=== PATIENT | male | born 1955 | race Caucasian/White ===

== ENCOUNTER → 2017-12-30 | Outpatient (CLI) | payer OTHER ==
[~2017-12-30] MED LIST: ATOR40TA69 PO; BUDE10.2 INH; GLUC1TAB13 PO; HYDR12.561 PO; LISI-353 PO; LISI20TA29 PO; LOSA-57 PO; METH4TAB66 PO; MULT-27 PO; NAPR220C12 PO; OMEG-24 PO; PNEI IM
--- NOTE | 2017-12-30 10:34 | RADIOLOGY IMAGING REPORT ---
FACILITY: [facility] - [place] PATIENT NAME: Trip Zamora : 1955 MR: [id number] V: [id number] EXAM DATE: ORDERING PHYSICIAN: ERNIE FARIAS TECHNOLOGIST: Location: [facility] - [place] Patient: Trip Zamora : 1955 Visit/Account:[id number] Date of Sevice: 12/30/2017 Exam type: SOFT TISSUE HEAD NECK History: neck mass Comparison: None. Findings: Patient has a palpable soft tissue protrusion extending from the midline of the lower neck. There is a well-circumscribed ovoid hypoechoic soft tissue process in the location of patient's palpable abno rmality measuring approximately 4.2 x 2.2 x 4.7 cm just beneath the skin. This is of uncertain etiol ogy. This could possibly represent a typical appearance of a lipoma although other soft tissue kalyan s included in the differential diagnosis. Also incidentally noted are multiple thyroid nodules which are not completely evaluated IMPRESSION: 1. 4.7 x 2.2 x 4.2 cm soft tissue process in the anterior inferior lower neck of uncertain etiology. Further evaluation with CT of the neck with contrast recommended for further evaluation Incidentally noted are bilateral thyroid nodules for which formal thyroid ultrasound would be helpful Report Dictated By: Jia Salinas MD at 12/30/2017 10:29 AM Report E-Signed By: Jia Salinas MD at 12/30/2017 10:31 AM WSN:[email or web address]
== END ==
LOC: US 07:04
PROVIDERS: ATTEND Nurse Practitioner Family
DX: E04.2 Nontoxic multinodular goiter (principal); R22.1 Localized swelling, mass and lump, neck
CPT/HCPCS: 76536

== ENCOUNTER → 2018-01-05 | Outpatient (CLI) | payer OTHER ==
[~2018-01-05] MED LIST changes: +IOPAMIDOL 76% 75 ML INFUS BTL 75 ML ONE
--- NOTE | 2018-01-05 11:57 | RADIOLOGY IMAGING REPORT ---
FACILITY: [facility] PATIENT NAME: Trip Zamora : 1955 MR: [id number] V: [id number] EXAM DATE: ORDERING PHYSICIAN: ERNIE FARISA TECHNOLOGIST: Location: [facility] [place] Patient: Trip Zamora : 1955 Visit/Account:[id number] Date of Sevice: 01/05/2018 THYROID HISTORY: thyroid nodule COMPARISON: Ultrasound soft tissue neck December 30, 2017 FINDINGS: SIZE: Right lobe: 5.3 x 1.9 x 1.5 cm Left lobe: 4.9 x 1.9 x 1.6 cm Isthmus: 3 mm PARENCHYMA: Homogeneous. NODULES: Right lobe: * In the medial aspect of the mid right lobe there is a 1.5 x 1.1 x 1.5 cm well-circumscribed ovoid hypoechoic nodule. In the inferior aspect right lobe there is a well-circumscribed hypoechoic nodule measuring 9 mm in diameter. Left lobe: * In the mid left lobe there is a 9 mm cyst. In the inferior left lobe there is a 1 cm well-circums cribed hypoechoic nodule Isthmus: * None discrete. VASCULARITY: Within normal limits. ADDITIONAL FINDINGS: None. IMPRESSION: There is a 1.5 cm well-circumscribed hypoechoic nodule in the medial aspect of the mid right lobe for which ultrasound-guided fine-needle aspiration is recommended REFERENCE: 2015 [place] [employer] Management Guidelines for Adult Patients with Thyroid Nodules and D ifferentiated Thyroid Cancer: The [place] [employer] Guidelines Task Force on Thyroid Nodul es and Differentiated Thyroid Cancer. SONOGRAPHIC PATTERNS: * Benign: Purely cystic nodules (no solid component); estimated risk of malignancy <1 percent; no bi opsy recommended. * Very Low Suspicion: Spongiform or partially cystic nodules without any of the sonographic features described in low, intermediate, or high suspicion patterns; estimated risk of malignancy <3 percent; consider FNA at > 2 cm (Observation without FNA is also a reasonable option). * Low Suspicion: Isoechoic or hyperechoic solid nodule, or partially cystic nodule with eccentric so lid areas, without microcalcification, irregular margin or ETE (extra-thyroidal extension), or taller than wide shape; estimated risk of malignancy 5-10 percent; recommend FNA at >1.5 cm. * Intermediate Suspicion: Hypoechoic solid nodule with smooth margins without microcalcifications, E TE (extra-thyroidal extension), or taller than wide shape; estimated risk of malignancy 10-20 percent ; recommend FNA at > 1 cm. * High Suspicion: Solid hypoechoic nodule or solid hypoechoic component of a partially cystic nodule with one or more of the following features: irregular margins (infiltrative, microlobulated), microc alcifications, taller than wide shape, rim calcifications with small extrusive soft tissue component, evidence of ETE (extra-thyroidal extension); estimated risk of malignancy >70-90 percent; recommend FNA at > 1 cm. NOTES: * Although a sonographically suspicious subcentimeter thyroid nodule without evidence of extrathyroi hoa extension or sonographically suspicious lymph nodes may be observed with close sonographic follow -up rather than pursuing immediate FNA, patient age and preference may modify decision-making. A > 50% interval increase in nodule volume and/or development of new suspicious sonographic features are felt to be a valid reasons for potential re-aspiration of a nodule previously shown to have benig n FNA cytology. Report Dictated By: Jia Salinas MD at 01/05/2018 11:50 AM Report E-Signed By: Jia Salinas MD at 01/05/2018 11:53 AM WSN:[email or web address]
--- NOTE | 2018-01-05 13:41 | RADIOLOGY IMAGING REPORT ---
FACILITY: [facility] - [place], [place] PATIENT NAME: Trip Zamora : 1955 MR: [id number] V: [id number] EXAM DATE: ORDERING PHYSICIAN: ERNIE FARIAS TECHNOLOGIST: Location: [facility] Patient: Trip Zamora : 1955 Visit/Account:[id number] Date of Sevice: 01/05/2018 EXAMINATION: Neck CT without contrast History: Neck mass COMPARISON STUDIES: Ultrasound 12/30/2017 TECHNIQUE: Axial images were obtained through the neck without IV contrast administration. Coronal a nd sagittal reformatted images were obtained from the axial source data. One of the following dose op timization techniques was utilized in the performance of this exam: Automated exposure control; adjus tment of the mA and/or kV according to the patient's size; or use of an iterative reconstruction agustin hnique. Specific details can be referenced in the facility's radiology CT exam operational policy. FINDINGS: A fatty lesion in the lower anterior midline neck compatible with a lipoma measures 4.4 x 2.9 cm axia lly and 5 cm in craniocaudal dimension. Multiple thyroid nodules measuring up to 1.4 cm on the right . No pathologically enlarged lymph nodes. Lung apices are clear. No destructive bone lesions. Mil d atherosclerotic calcifications at both carotid bifurcations. Moderate mucosal thickening in the vi sualized ethmoid air cells. IMPRESSION: There is a fatty lesion in the lower anterior midline neck consistent with a lipoma measuring 4.4 x 2 .9 x 5 cm. Report Dictated By: Manuel Martin MD at 01/05/2018 1:30 PM Report E-Signed By: Manuel Martin MD at 01/05/2018 1:36 PM WSN:[id number]
== END ==
LOC: US 01:22
PROVIDERS: ATTEND Nurse Practitioner Family
DX: D17.0 Benign lipomatous neoplasm of skin and subcutaneous tissue of head, face and neck (principal); E04.1 Nontoxic single thyroid nodule
CPT/HCPCS: 70492; 76536; Q9967

== ENCOUNTER → 2018-01-12 | Outpatient (CLI) | payer OTHER ==
[~2018-01-12] MED LIST changes: -IOPAMIDOL 76% 75 ML INFUS BTL 75 ML ONE
[2018-01-12 09:38] LABS: INR 1.06
--- NOTE | 2018-01-12 17:40 | RADIOLOGY IMAGING REPORT ---
FACILITY: [facility] PATIENT NAME: Trip Zamora : 1955 MR: [id number] V: [id number] EXAM DATE: ORDERING PHYSICIAN: ERNIE FARIAS TECHNOLOGIST: Location: [facility] Patient: Trip Zamora : 1955 Visit/Account:[id number] Date of Sevice: 01/12/2018 Exam type: THYROID BIOPSY FINE NEEDLE ASP History: thyroid nodule Comparison: Thyroid ultrasound January 05, 2018. Findings: Informed consent was obtained. The right-sided the patient's neck was prepped and draped in usual st erile fashion. Local anesthesia was accomplished with 1% lidocaine. Under sonographic guidance four 25-gauge FNA biopsies were obtained through the hypoechoic nodule medial aspect of the right lobe. Samples were given to the medical technologist prn for processing. The procedure was accomplished with out apparent complication. IMPRESSION: 1. Successful sonographically guided right-sided thyroid biopsy Report Dictated By: Jia Salinas MD at 01/12/2018 5:36 PM Report E-Signed By: Jia Salinas MD at 01/12/2018 5:37 PM WSN:[email or web address]
== END ==
LOC: US 01:35
PROVIDERS: ATTEND Nurse Practitioner Family
DX: E04.2 Nontoxic multinodular goiter (principal)
CPT/HCPCS: 10022; 36415; 76942; 85049; 85610; 85730; 88104; 88172

== ENCOUNTER → 2018-07-01 | Outpatient (CLI) | payer OTHER | LOC: LAB 10:20 | PROVIDERS: ATTEND Nurse Practitioner Family | DX: E04.2 Nontoxic multinodular goiter (principal) | CPT/HCPCS: 36415; 84439; 84443; 84480; 86376 ==

== ENCOUNTER → 2018-12-20 | Outpatient (CLI) | payer OTHER ==
[~2018-12-20] MED LIST changes: +ALBU8.5H IH; +LEVO750T44 PO; +LOSA100T75 PO
--- NOTE | 2018-12-20 15:00 | RADIOLOGY IMAGING REPORT ---
[place] [facility] [place]IENT NAME: Trip Zamora : 1955 MR: [id number] V: [id number] EXAM DATE: ORDERING PHYSICIAN: ERNIE FARIAS TECHNOLOGIST: Location: [facility] - [place] Patient: Trip Zamora : 1955 Visit/Account:[id number] Date of Sevice: 12/20/2018 THYROID HISTORY: Goiter/neck mass COMPARISON: January 05, 2018 FINDINGS: SIZE: Right lobe: 5.46 x 1.4 x 1.9 cm Left lobe: 3.82 x 1.76 x 1.5 to cm Isthmus: 3.5 mm PARENCHYMA: Homogeneous. NODULES: Right lobe: * In the inferior right lobe there is a well-circumscribed hypoechoic nodule measuring [address] that is relatively unchanged. In the mid to inferior right lobe there is a well-circumscribed ov oid isoechoic nodule measuring 1.5 cm in diameter that is relatively unchanged Left lobe: * In the mid left lobe there is a well-circumscribed ovoid hypoechoic nodule measuring [address] actually appears smaller when compared the prior study. In the inferior left lobe also noted is a 1.2 cm cyst Isthmus: * None discrete. VASCULARITY: Within normal limits. ADDITIONAL FINDINGS: In the anterior aspect of the neck in the midline there is a 4.6 x 2.6 x 4.5 cm heterogeneous solid mass. This mass appears separate from the thyroid IMPRESSION: Bilateral thyroid nodules appear stable In the anterior aspect of the neck in the midline there is a 4.6 x 2.6 x 4.5 cm heterogeneous solid a ppearing mass that appears separate from the thyroid gland. This mass is of uncertain etiology howev er given the solitary nature and the size further evaluation with contrast-enhanced CT or MR the neck is recommended REFERENCE: 2015 [place] [employer] Management Guidelines for Adult Patients with Thyroid Nodules and D ifferentiated Thyroid Cancer: The [place] [employer] Guidelines Task Force on Thyroid Nodul es and Differentiated Thyroid Cancer. SONOGRAPHIC PATTERNS: * Benign: Purely cystic nodules (no solid component); estimated risk of malignancy <1 percent; no bi opsy recommended. * Very Low Suspicion: Spongiform or partially cystic nodules without any of the sonographic features described in low, intermediate, or high suspicion patterns; estimated risk of malignancy <3 percent; consider FNA at > 2 cm (Observation without FNA is also a reasonable option). * Low Suspicion: Isoechoic or hyperechoic solid nodule, or partially cystic nodule with eccentric so lid areas, without microcalcification, irregular margin or ETE (extra-thyroidal extension), or taller than wide shape; estimated risk of malignancy 5-10 percent; recommend FNA at >1.5 cm. * Intermediate Suspicion: Hypoechoic solid nodule with smooth margins without microcalcifications, E TE (extra-thyroidal extension), or taller than wide shape; estimated risk of malignancy 10-20 percent ; recommend FNA at > 1 cm. * High Suspicion: Solid hypoechoic nodule or solid hypoechoic component of a partially cystic nodule with one or more of the following features: irregular margins (infiltrative, microlobulated), microc alcifications, taller than wide shape, rim calcifications with small extrusive soft tissue component, evidence of ETE (extra-thyroidal extension); estimated risk of malignancy >70-90 percent; recommend FNA at > 1 cm. NOTES: * Although a sonographically suspicious subcentimeter thyroid nodule without evidence of extrathyroi hoa extension or sonographically suspicious lymph nodes may be observed with close sonographic follow -up rather than pursuing immediate FNA, patient age and preference may modify decision-making. A > 50% interval increase in nodule volume and/or development of new suspicious sonographic features are felt to be a valid reasons for potential re-aspiration of a nodule previously shown to have benig n FNA cytology. Report Dictated By: Jia Salinas MD at 12/20/2018 2:35 PM Report E-Signed By: Jia Salinas MD at 12/20/2018 2:57 PM WSN:[email or web address]
== END ==
LOC: US 00:46
PROVIDERS: ATTEND Nurse Practitioner Family
DX: E04.9 Nontoxic goiter, unspecified (principal)
CPT/HCPCS: 76536

== ENCOUNTER → 2019-02-04 | Outpatient (CLI) | payer OTHER ==
[~2019-02-04] MED LIST changes: +FEXO-72 PO; +MONT10TA PO
--- NOTE | 2019-02-04 08:24 | RADIOLOGY IMAGING REPORT ---
FACILITY: [facility] PATIENT NAME: Trip Zamora : 1955 MR: [id number] V: [id number] EXAM DATE: ORDERING PHYSICIAN: LEONOR CARO TECHNOLOGIST: Location: [facility] - [place] Patient: Trip Zamora : 1955 Visit/Account:[id number] Date of Sevice: 02/04/2019 CT SINUS W/O CON COMPARISONS: None ADDITIONAL PERTINENT HISTORY: Nasal polyps with nasal septal deviation TECHNIQUE: Multiple axial images were obtained through the paranasal sinuses with coronal and sagitta l reformatted images. No IV contrast was administered. One of the following dose optimization techni ques was utilized in the performance of this exam: Automated exposure control; adjustment of the mA a nd/or kV according to the patient's size; or use of an iterative reconstruction technique. Specific details can be referenced in the facility's radiology CT exam operational policy. FINDINGS: Maxillary sinuses: Severe mucosal thickening involving the right maxillary sinus. Moderate mucosal in volving the left maxillary sinus.. Frontal sinuses: Complete opacification of both frontal sinuses.. Ethmoid air cells: Complete opacification of the anterior and posterior ethmoid air cells bilaterally .. Sphenoid sinuses: Complete opacification of both saline sinuses.. Nasal septum: Severe nasal septal deviation to the left measuring 8 mm. Multiple polypoid lesions wit hin the nasal cavities bilaterally compatible underlying nasal polyposis.. Drainage pathways: Obstruction at the level of the right ostiomeatal complex as well as at the right frontal recess and right sphenoid ethmoid recess. Obstruction at the level of the left frontal recess and left sphenoid ethmoid recess. Paranasal variance: None Medial orbital kennedy, cribriform plate, and orbital floors: Negative. Visualized bony skull base Negative. Visualized intracranial contents: Negative. Orbits and surrounding soft tissues: Negative. IMPRESSION: 1. Severe obstructive paranasal sinus disease as discussed above. 2. Findings of underlying nasal polyposis. 3. Severe nasal septal deviation to the left. Report Dictated By: Tomas Rowley MD at 02/04/2019 8:13 AM Report E-Signed By: Tomas Rowley MD at 02/04/2019 8:17 AM WSN:[email or web address]
== END ==
LOC: CT 03:50
PROVIDERS: ATTEND Otolaryngology
DX: J33.8 Other polyp of sinus (principal); J34.2 Deviated nasal septum; J34.89 Other specified disorders of nose and nasal sinuses
CPT/HCPCS: 70486

== ENCOUNTER → 2019-02-15 | Outpatient (CLI) | payer OTHER ==
[~2019-02-15] MED LIST changes: +FLUT12HF2
[2019-02-15 12:32] LABS: PLATELET COUNT, AUTOMATED 177 K/uL (150-450)
--- NOTE | 2019-02-15 13:15 | EKG ---
FACILITY: [facility] - [place] PATIENT NAME: LISA VÁSQUEZ : [id number] MR: [id number] V: [id number] EXAM DATE: ORDERING PHYSICIAN: ERNIE FARIAS TECHNOLOGIST: LORENE Test Reason : PRE OP Blood Pressure : / mmHG Vent. Rate : 070 BPM Atrial Rate : 070 BPM P-R Int : 152 ms QRS Dur : 088 ms QT Int : 410 ms P-R-T Axes : 052 072 023 degrees QTc Int : 442 ms Normal sinus rhythm Normal ECG No previous ECGs available Confirmed by ELENI BRITTON ([id number]) on 02/15/2019 4:50:37 PM Referred By: JARRETT Confirmed By:ELENI BRITTON
== END ==
LOC: LAB 12:09
PROVIDERS: ATTEND Nurse Practitioner Family
DX: Z12.5 Encounter for screening for malignant neoplasm of prostate (principal); R73.01 Impaired fasting glucose; I10 Essential (primary) hypertension
CPT/HCPCS: 36415; 82040; 82247; 82310; 82374; 82435; 82565; 82947; 83036; 84075; 84132; 84153; 84155; 84295; 84450; 84460; 84520; 85025; 93005